=== PATIENT | male | born 1940 | race Caucasian/White ===

== ENCOUNTER 2018-01-28 09:24 | Emergency (ER) | payer MEDICARE, MEDICAID ==
[~2018-01-28] VITALS: Ht 172.7 cm; Wt 72.0 kg
[~2018-01-28 09:24] MED LIST: CIPRO XR500 M1 OR; DARVOCET-N 100100 MG OR; LOPRESSOR50 MG PO; METOPROL TAR50 MG PO; NO MEDS; ROCEPHIN IV
[2018-01-28] MEDS ORDERED: METOPROL TAR25 MG PO (09:33)
[2018-01-28] MEDS ORDERED: BACITRACIN3.5 GM TOP (09:39)
[2018-01-28 10:00] VITALS: BP 151/77
== END 2018-01-28 10:00 | disposition home or self-care (01) ==
LOC: ED 09:24
DX: T23.261A Burn of second degree of back of right hand, initial encounter (principal); I10 Essential (primary) hypertension; J44.9 Chronic obstructive pulmonary disease, unspecified; F17.210 Nicotine dependence, cigarettes, uncomplicated; T31.0 Burns involving less than 10% of body surface; X10.2XXA Contact with fats and cooking oils, initial encounter; Z86.12 Personal history of poliomyelitis

== ENCOUNTER 2019-06-11 10:26 | Emergency (ER) | payer MEDICARE, MEDICAID ==
[~2019-06-11] VITALS: Ht 172.7 cm; Wt 75.0 kg
[~2019-06-11 10:26] MED LIST changes: +BACITRACIN3.5 GM TOP; +METOPROL TAR25 MG PO
[2019-06-11] MEDS ORDERED: LOPRESSOR 550 MG/TAB PO (11:03)
[2019-06-11] MEDS ORDERED: PREP H HC1 % EX (12:04)
[2019-06-11 12:08] VITALS: BP 153/88
[2019-06-13] MEDS ORDERED: VENTOLIN H108 MCG/AC (12:47)
== END 2019-06-11 12:17 | disposition home or self-care (01) ==
LOC: ED 10:26
DX: K62.2 Anal prolapse (principal); K59.00 Constipation, unspecified

== ENCOUNTER 2019-06-13 13:15 | Observation (INO) | payer MEDICARE, MEDICAID ==
[~2019-06-13] VITALS: Ht 170.2 cm; Wt 62.9 kg
[~2019-06-13 13:15] MED LIST changes: +LOPRESSOR 550 MG/TAB PO; +PREP H HC1 % EX; +VENTOLIN H108 MCG/AC
--- NOTE | 2019-06-13 13:28 | NUR ---
PT ARRIVED TO THE UNIT VIA WC WITH FAMILY. ASSISTED TO GET INTO BED AND ABLE TO CHANGE CLOTHES BY HIMSELF . FAMILY IN THE ROOM.
[2019-06-13 13:50] VITALS: BP 135/81
--- NOTE | 2019-06-13 14:00 | NUR ---
ASSESSMENT IS COMPLETED: IV SITE IS FREE FROM REDNESS OR EDEMA. HR IS REG,PULSES ARE STRONG X4, ABD IS SOFT WITH ACTIVE BS. BREATH SOUNDS ARE CLEAR, BILATERALLY. FAMILY WILL STAY IN THE ROOM TO ASSIST WITH PT. 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 CONTINUE TO OBSERVE AND MONITOR.
[2019-06-13 14:19] LABS: ALBUMIN 4.4 g/dL (3.2-5.0); ALKALINE PHOSPHATASE 85 u/l (38-126); BUN 17 mg/dL (8-23); BUN/CREATININE RATIO 21 (12-20 (CALC)); CARBON DIOXIDE 25 mmol/l (22-30); CHLORIDE 107 mmol/l (95-108); CREATININE 0.8 mg/dL (0.7-1.3); GFR > 60 ML/MIN (>=60 (CALC)); GFR FOR AFR.AMER. > 60 ML/MIN (>=60 (CALC)); SODIUM 140 mmol/l (137-146); TOTAL PROTEIN 7.7 g/dL (6.3-8.2)
[2019-06-13 14:33] LABS: ANION GAP 14 (6-22 (CALC)); BILIRUBIN, TOTAL 1.8 mg/dL (0.0-1.4); POTASSIUM 5.7 mmol/l (3.5-5.1); SGOT/AST 44 u/l (19-48)
[2019-06-13] MEDS ORDERED: LOPRESSOR50 M2 PO (14:34)
[2019-06-13 14:35] LABS: HEMATOCRIT 50.2 % (39.0-50.0); HEMOGLOBIN 16.3 g/dl (14.0-18.0); IMMATURE GRANULOCYTES 0.3 % (0.0-5.0); MEAN CELL VOLUME 91.3 fL CALC (80.0-100.0); MEAN CORPUSCULAR HGB 29.6 pG CALC (26.0-32.0); MEAN CORPUSCULAR HGB CONC 32.5 g/L CALC (32.0-36.0); NEUT# 3.97 thou/uL (1.82-7.42); RED BLOOD COUNT 5.5 mill/uL (4.70-6.10); RED CELL DISTRI WIDTH 14.1 % (11.5-15.5)
[2019-06-13] MEDS ORDERED: FOLIC ACI1 PO (14:35)
[2019-06-13] MEDS ORDERED: B-12100 MCG PO (14:39)
[2019-06-13 15:56] VITALS: BP 134/89
--- NOTE | 2019-06-13 17:00 | NUR ---
PT IS RELAXING IN BED FAMILY IN THE ROOM. IV SITE IS FREE FROM REDNESS OR EDEMA. CONTINUE TO OSBERVE AND MONITOR.
--- NOTE | 2019-06-13 18:23 | NUR ---
STARTED TP ON NULYTELY. WITH ROOM TEMPERATURE WATER. TOLERATING WELL.
[2019-06-13 20:00] VITALS: BP 142/90
--- NOTE | 2019-06-13 20:00 | NUR ---
PT AWAKE RESTING IN BED. PT HAVING FREQUENT LOSE BOWEL MOVEMENTS. PT IS DRINKING HIS NULYTELY WITHOUT ANY DIFFICLTY. PT IS ALERT AND ORIENTED. RESP EVEN AND UNLABORED. LUNGS CLEAR BILAT. ABD SOFT AND NONDISTENDED WITH BOWEL SOUNDS PRESENT. NO LOWER EXT EDEMA NOTED. PEDAL PULSES PALPATED BILAT. IV SITE PATENT IN RT A.C. NO REDNESS OR SWELLING AT SITE. IVF LR AT 125CC/HR. PT AND PTS FAMILY HAVE NO QUESTIONS REGARDING SURGERY TO BE PERFORMED IN THE A.M. PT INSTRUCTED HE WILL REMAIN NPO AFTER MIDNIGHT. DUE TO PT HAVING POLIO PT UNABLE TO SIGN CONSENT FORM SO PT HAS TO USE HIS NAME STAMPER TO AUTHORIZE PERMITTION FOR SURGERY. CONSENT STAMPED BY PT. PT OFFERS NO COMPLAITNS. FREQUENT ROUNDS MADE. CALL LORENZANA WITHIN REACH.
--- NOTE | 2019-06-13 22:14 | NUR ---
PT FREQUENTLY ASSISTED TO BSC. PT HAVING FREQUENT LIGHT BROWN LIQUID STOOLS. PT IS DRINKING HIS NULYTELY. OFFERS NO COMPLAINTS. FREQUENT ROUNDS MADE. CALL LORENZANA WITHIN REACH.
--- NOTE | 2019-06-13 23:40 | NUR ---
DUE TO PT HAVING CONTINIOUS LIQUID BOWEL MOVEMENTS PT REQUEST TO SIT ON BSC INSTEAD OF FREQUENTLY GETTING IN AND OUT OF BED. PT HAD FREQUENT LIQIOD YELLOW/CLEAR BOWEL MOVEMENTS. PT DID DRINK ALL HIS NULYTELY. AMADOR CARE GIVEN. ASSISTED BACK TO BED AND REPOSITIONED FOR COMFORT. RESP EVEN AND UNLABORED. IV SITE PATENT. OFFERS NO COMPLAINTS. PTS SISTER STAYING THE NIGHT AT BEDSIDE. FREQUENT ROUNDS MADE. CALL LORENZANA WITHIN REACH.
[2019-06-14] VITALS (10 sets, daily range): BP systolic 99–150; BP diastolic 58–98
--- NOTE | 2019-06-14 00:10 | NUR ---
PT AWARE TO REMAIN NPO. IV SITE PATENT. FREQUENT ROUNDS MADE. CALL LORENZANA WITHIN REACH.
--- NOTE | 2019-06-14 02:01 | NUR ---
PT ASSISTED BACK TO BED AFTER USING BSC. PT CONTINUES TO HAVE CLEAR LIQUID BOWEL MOVEMENTS. AMADOR CARE GIVEN. IV SITE PATENT. PT REMAINS NPO. FREQUENT ROUNDS MADE. CALL LORENZANA WITHIN REACH.
--- NOTE | 2019-06-14 04:16 | NUR ---
PT AWAKE RESTING IN BED. ASSESSMENT UNCHANGED. PT CONTINUES TO HAVE LIQUID YELLOW BOWEL MOVEMENTS BUT SMALLER AND LESS IN FREQUENCY. IV SITE PATENT. PT REMAINS NPO. PTS SISTER AT BEDSIDE AND ATTENTIVE AT PTS NEEDS. OFFERS NO COMPLAINTS. CALL LORENZANA WITHIN REACH.
--- NOTE | 2019-06-14 05:05 | NUR ---
PT AWAKE RESTING IN BED. PT GIVEN A HIBICLENS BATH BY [employer] FOR O.R TODAY. CALL LORENZANA WITHIN REACH.
[2019-06-14 05:11] LABS: ANION GAP 14 (6-22 (CALC)); BUN 13 mg/dL (8-23); BUN/CREATININE RATIO 17 (12-20 (CALC)); CARBON DIOXIDE 24 mmol/l (22-30); CHLORIDE 109 mmol/l (95-108); CREATININE 0.7 mg/dL (0.7-1.3); GFR > 60 ML/MIN (>=60 (CALC)); GFR FOR AFR.AMER. > 60 ML/MIN (>=60 (CALC)); SODIUM 143 mmol/l (137-146)
[2019-06-14 05:19] LABS: POTASSIUM 4.1 mmol/l (3.5-5.1)
--- NOTE | 2019-06-14 07:25 | NUR ---
REPORT RECEIVED FROM SANDY ORR;PT OOB RESTING ON BEDSIDE COMMODE WITH FAMILY AT BEDSIDE;INTRODUCED SELF TO PT AND POC DISCUSSED;RESPIRATIONS EVEN AND UNLABORED ON RA;PT EXPRESSES WISHES TO HAVE IV SITE CHANGED R/T DISCOMFORT, IV FLUIDS INFUSING WITH EASE;SANDY ORR TO CHANGE IV SITE PER PT REQUEST;PT DENIES ANY ADDITIONAL NEEDS AT THIS TIME AND IS ENCOURAGED TO CALL FOR ASSISTANCE IF NEEDED;FALL PRECAUTIONS IN PLACE WITH CALL LIGHT IN REACH;WILL CONTINUE TO MONITOR
--- NOTE | 2019-06-14 08:00 | NUR ---
IV SITE IN RT A.C REMOVED PER PTS REQUEST WITH CATHETER INTACT. NEW IV SITE OBTAINED ON FIRST ATTEMPT IN RT FOREARM WITH GOOD BLOOD RETURN. FLUSHED WITHOUT ANY DIFFICULTY. IVF LR AT 125CC/HR INFUSING NO REDNESS OR SWELLING AT SITE. OFFERS NO COMPLAINTS. CALL LORENZANA WITHIN REACH.
--- NOTE | 2019-06-14 09:05 | NUR ---
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 PROVIDED AND PT EDUCATED ON USE POST OP 10X PER HOUR, PT DEMONSTRATED UNDERSTANDING AT THIS TIME, GOAL 500;PT DENIES ANY ADDITIONAL NEEDS AND IS ENCOURAGED TO CALL FOR ASSISTANCE IF NEEDED;FALL PRECAUTIONS IN PLACE WITH CALL LIGHT IN REACH;WILL CONTINUE TO MONITOR
--- NOTE | 2019-06-14 10:25 | NUR ---
AT BEDSIDE DISCUSSING POC. CONSENT TO BE OBTAINED FOR A HEMORRHOIDECTOMY.PT VERBALIZES UNDERSTANDING.
--- NOTE | 2019-06-14 11:42 | NUR ---
ATTEMPTED TO OBTAIN CONSENT FOR HEMORRIODECTOMY BUT PATIENT SISTER WHO IS POA IS DRIVING BACK FROM [place] AND SHOULD ARRIVE SHORTLY. PT UNABLE TO SIGN FOR HIMSELF.
--- NOTE | 2019-06-14 11:45 | NUR ---
PT RESTING IN SEMI FOWLERS POSITION WITH FAMILY AT BEDSIDE;RESPIRATIONS REMAIN EVEN AND UNLABORED ON RA;PT DENIES ANY PAIN OR DISCOMFORTS;IV FLUIDS INFUSING TO RFA WITH EASE PER ORDER;PT AND FAMILY NOTIFIED OF ETA FOR OR AT APPROX 15 MINS AND VERBALIZE UNDERSTANDING;PT DENIES ANY ADDITIONAL NEEDS AT THIS TIME AND IS ENCOURAGED TO CALL FOR ASSISTANCE IF NEEDED;CALL LIGHT IN REACH;WILL CONTINUE TO MONITOR
--- NOTE | 2019-06-14 12:00 | NUR ---
PT TRANSPORTED TO OR IN STABLE CONDITION VIA STRETCHER ACCOMPANIED BY OR STAFF MEMBER.
--- NOTE | 2019-06-14 15:55 | NUR ---
PT RETURNED BACK TO MED/SURG ROOM 278 IN STABLE CONDITION VIA STRETCHER ACCOMPANIED BY X2 OR STAFF MEMBERS, FAMILY WAITING IN ROOM;BEDSIDE REPORT RECEIVED AT THIS TIME;PT TRANSFERRED TO HOSPITAL BED WITH 3 PERSON ASSIST AND TOLERATED WELL;PT A&O X3, LAUGHING AND JOKING WITH STAFF MEMBERS;PT POST OP HEMORROIDECTOMY;PT REPORTS MINIMAL PAIN AT THIS TIME, PAIN SCALE AND REPORTING EDUCATED;RESPIRATIONS REMAIN EVEN AND UNLABORED ON O2 @ 2L VIA NC;I.S. AT BEDSIDE AND REINFORCED USAGE;IV SITE TO RIGHT FOREARM INFUSING LR @ 75 ML/HR,SITE APPEARS HEALTHY;PT RE-POSITIONED IN BED AND RECTAL AREA OBSERVED, MINIMAL BLOOD TINGED DRAINAGE NOTED;SCD'S PLACED ON PATIENT;VS REMAIN STABLE AND WILL BE TAKEN Q15 MINS PER PROTOCAL;PT DENIES ANY ADDITIONAL NEEDS AND IS ENCOURAGED TO CALL FOR ASSISTANCE IF NEEDED;CALL LIGHT IN REACH;WILL CONTINUE TO MONITOR
--- NOTE | 2019-06-14 18:00 | NUR ---
PT RESTING IN SEMI FOWLERS POSITION WITH FAMILY AT BEDSIDE;RESPIRATIONS REMAIN EVEN AND UNLABORED ON O2 @ 2L VIA NC;PT REPORTS RECTAL PAIN TO BE 3/10 ON THE PAIN SCALE, PT TO BE MEDICATED WITH SCHEDULED TORADOL IVP;PT DENIES ANY ADDITIONAL NEEDS;CALL LIGHT IN REACH;WILL CONTINUE TO MONITOR
--- NOTE | 2019-06-14 18:55 | NUR ---
REPORT FROM LAURA CARRENO. PT SITTING UP IN BED. SEVERAL VISITORS IN ROOM AT THIS TIME. NO APPARENT DISTRESS NOTED. PT DENIES ANY PAIN OR DISCOMFORT. SMALL AMOUNT OF BLOOD NOTED TO NITIN ON BED. WILL CONTINUE TO MONITOR. DISCUSSED POC. PT VERBALIZED UNDERSTANDING. CALL LIGHT WITHIN REACH.
--- NOTE | 2019-06-14 20:10 | NUR ---
PT RESTING IN BED ON LEFT SIDE. SMALL AMOUNT OF BLOOD NOTED TO NITIN AND LINENS. PARTIAL BED BATH AND LINEN CHANGE PROVIDED. PT DENIES ANY PAIN OR DISCOMFORT. FAMILY MEMBER REMAINS IN ROOM. CALL LIGHT WITHIN REACH. WILL CONTINUE TO MONITOR.
--- NOTE | 2019-06-15 00:21 | NUR ---
PT MEDICATED WITH SCHEDULED TORADOL. PT DENIES ANY PAIN OR DISCOMFORT AT THIS TIME. NO DISTRESS NOTED. FAMILY REMAINS IN ROOM. CALL LIGHT WITHIN REACH. WILL CONTINUE TO MONITOR.
[2019-06-15 03:47] VITALS: BP 89/49
--- NOTE | 2019-06-15 03:47 | NUR ---
PT RESTING IN BED WITH EYES CLOSED. NO DISTRESS NOTED. NO BLOOD OR DRAINAGE NOTED FROM RECTUM. BP A LITTLE LOW. PT DENIES ANY PAIN OR DISCOMFORT. REPOSITIONED PT AND ELEVATED FOOT OF BED. WILL CONTINUE TO MONITOR.
[2019-06-15 04:23] VITALS: BP 93/68
--- NOTE | 2019-06-15 06:35 | NUR ---
CURRENT BP 95/52. PT REFUSED PAIN MEDICATION, FAMILY MEMBER IN ROOM CONCERNED ABOUT BP BEING LOW. EDUCATED PT AND FAMILY MEMBER ON MEDICATIONS AND PRN MEDICATIONS IF PT BEGINS TO HAVE PAIN. NO APPARENT DISTRESS NOTED. CALL LIGHT WITHIN REACH. WILL CONTINUE TO MONITOR.
--- NOTE | 2019-06-15 07:00 | NUR ---
REPORT RECEIVED FROM WAI LAIRD;PT RESTING IN SEMI FOWLERS POSITION WITH FAMILY AT BEDSIDE;INTRODUCED SELF TO PT AND POC DISCUSSED;RESPIRATIONS EVEN AND UNLABORED ON O2 @ 2L VIA NC;PT DENIES ANY CURRENT PAIN OR DISCOMFORTS;IV FLUIDS INFUSING TO RIGHT FOREARM WITH EASE;PT DENIES ANY ADDITIONAL NEEDS AND IS ENCOURAGED TO CALL FOR ASSISTANCE IF NEEDED;CALL LIGHT IN REACH;WILL CONTINUE TO MONITOR
[2019-06-15 08:55] VITALS: BP 103/73
--- NOTE | 2019-06-15 08:55 | NUR ---
PT RESTING IN SEMI FOWLERS POSITION WITH FAMILY AT BEDSIDE,A&O X3 WITH GARBLED SPEECH.PT FAMILY REPORTS THIS IS NORMAL FOR PATIENT;VS OBTAINED AND ASSESSMENT COMPLETED, CURRENT BP 103/73 HR 90. MD TO BE NOTIFIED OF HYPOTENSION;PT REPORTS MINIMAL PAIN AT THIS TIME, PAIN SCALE AND REPORTING EDUCATED;PT POST OP DAY #1 HEMORROIDECTOMY;RESPIRATIONS EVEN AND UNLABORED ON O2 @ 2L VIA NC,CLEAR LUNG SOUNDS;RE-ENCOURAGED PT TO USE I.S. 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
--- NOTE | 2019-06-15 09:45 | NUR ---
NOTIFIED OF HYPOTENSION, ORDER TO HOLD LOPRESSOR PO THIS MORNING OBTAINED;WILL CONTINUE TO MONITOR
--- NOTE | 2019-06-15 10:00 | NUR ---
PT ASSISTED TO BEDSIDE COMMODE FOR SITZ BATH. PT TOLERATED WELL.
--- NOTE | 2019-06-15 10:15 | NUR ---
AT BEDSIDE DISCUSSING POC WITH PT AND FAMILY.
[2019-06-15 11:59] VITALS: BP 122/71
--- NOTE | 2019-06-15 12:00 | NUR ---
PT RESTING IN SEMI FOWLERS POSITION WITH MULTIPLE FAMILY MEMBERS AT BEDSIDE;RESPIRATIONS EVEN AND UNLABORED ON RA;PT REPORTS RECTAL PAIN RATING 2/10 ON THE PAIN SCALE AND IS TO BE MEDICATED WITH SCHEDULED TORADOL IVP; IV SITE PATENT INFUSING FLUIDS PER ORDER;VS STABLE, BP 122/71 HR 80;PT ASSISTED WITH MEAL TRAY SET UP;PT DENIES ANY ADDITIONAL NEEDS AT THIS TIME AND IS ENCOURAGED TO CALL FOR ASSISTANCE IF NEEDED;FALL PRECAUTIONS IN PLACE WITH CALL LIGHT IN REACH;WILL CONTINUE TO MONITOR
--- NOTE | 2019-06-15 15:10 | NUR ---
PT AMBULATED TO BEDSIDE COMMODE WITH A WEAK GAIT WITH 1 PERSON ASSIST.VOIDED CLEAR/YELLOW URINE INTO COMMODE, AMADOR CARE PROVIDED;SMALL AMOUNT OF BLOOD NOTED;PT RE-POSITIONED BACK INTO BED;RESPIRATIONS EVEN AND UNLABORED ON RA;PT DENIES ANY CURRENT PAIN OR DISCOMFORTS;IV FLUIDS INFUSING TO RIGHT FOREARM WITH EASE;PT DENIES ANY ADDITIONAL NEEDS AND IS ENCOURAGED TO CALL FOR ASSISTANCE IF NEEDED;CALL LIGHT IN REACH;WILL CONTINUE TO MONITOR
[2019-06-15 15:37] VITALS: BP 101/67
--- NOTE | 2019-06-15 18:55 | NUR ---
REPORT FROM LAURA CARRENO. PT RESTING IN BED WITH FAMILY AT BEDSIDE. ALERT AND ORIENTED. PT DENIES ANY PAIN OR DISCOMFORT. NO CURRENT BLEEDING FROM RECTUM NOTED. DISCUSSED POC. PT VERBALIZED UNDERSTANDING. CALL LIGHT WITHIN REACH. WILL CONTINUE TO MONITOR.
[2019-06-15 19:23] VITALS: BP 113/70
--- NOTE | 2019-06-15 23:55 | NUR ---
PT RESTING IN BED WITH EYES CLOSED. PT EASILY AROUSED TO SPEECH. PT DENIES ANY PAIN OR DISCOMFORT. NO APPARENT DISTRESS OR BLEEDING NOTED. CALL LIGHT WITHIN REACH. WILL CONTINUE TO MONITOR.
[2019-06-16 00:24] VITALS: BP 119/75
[2019-06-16 04:08] VITALS: BP 107/67
--- NOTE | 2019-06-16 05:54 | NUR ---
EMPTIED 200ML CLEAR YELLOW URINE FROM URINAL. PT DENIES ANY PAIN OR DISCOMFORT. MEDICATED ORDERED. CALL LIGHT WITHIN REACH. WILL CONTINUE TO MONITOR.
[2019-06-16 06:00] LABS: ANION GAP 8 (6-22 (CALC)); BUN 8 mg/dL (8-23); BUN/CREATININE RATIO 12 (12-20 (CALC)); CARBON DIOXIDE 28 mmol/l (22-30); CHLORIDE 108 mmol/l (95-108); CREATININE 0.7 mg/dL (0.7-1.3); GFR > 60 ML/MIN (>=60 (CALC)); GFR FOR AFR.AMER. > 60 ML/MIN (>=60 (CALC)); POTASSIUM 3.7 mmol/l (3.5-5.1); SODIUM 140 mmol/l (137-146)
[2019-06-16 06:48] LABS: MEAN CELL VOLUME 92.8 fL CALC (80.0-100.0); MEAN CORPUSCULAR HGB 29.5 pG CALC (26.0-32.0); MEAN CORPUSCULAR HGB CONC 31.8 g/L CALC (32.0-36.0); RED BLOOD COUNT 4.47 mill/uL (4.70-6.10); RED CELL DISTRI WIDTH 14.3 % (11.5-15.5)
[2019-06-16 06:50] LABS: HEMATOCRIT 41.5 % (39.0-50.0); HEMOGLOBIN 13.2 g/dl (14.0-18.0)
--- NOTE | 2019-06-16 07:00 | NUR ---
SHIFT CHANGE REPORT, PT AWAKE AND ALERT, DENIES PAIN/DISCOMFORT, IVF INFUSING, SCD IN PLACE, CALL LORENZANA IN REACH.
[2019-06-16 08:52] VITALS: BP 144/88
--- NOTE | 2019-06-16 11:01 | NUR ---
TONYE GIVERS IN ROOM AT THIS TIME, ASSISTED PT TO BSC, AMADOR CARE DONE BY FIRER LOCOMOTIVE CRANE AND SITZ BATH GIVEN BY RN, WILL CONTINUE TO MONITOR.
--- NOTE | 2019-06-16 13:47 | NUR ---
DR GAUTHIER ROUNDED, SAID PT MAY GO HOME FROM HIS STANDPOINT, DR MOYER NOTIFIED.
--- NOTE | 2019-06-16 13:59 | NUR ---
DR MOYER ROUNDED, DISCUSSED D/C PLANS, PT STATED UNDERSTANDING AND GREATFUL TO BE GOING HOME, FAMILY IN ROOM AND ALSO INFORMED OF PLANS.
[2019-06-16 14:45] VITALS: BP 111/67
--- NOTE | 2019-06-16 16:00 | NUR ---
ANXIOUSLY AWAITING D/C ORDERS HE IS ANXIOUS TO GO HOME, NO COMPLAINS AT THIS TIME, FAMILY AT BEDSIDE.
--- NOTE | 2019-06-16 17:47 | NUR ---
Discharge instructions given. Patient verbalizes understanding of same. Discharged in stable condition via Wheelchair to Home with family. All belongings sent with pt. HOME HEALTH TO FOLLOW
== END 2019-06-16 17:40 ==
LOC: MS2 13:15
PROVIDERS: ADMIT Surgery; ATTEND Internal Medicine
PROC: 06BY3ZC Excision of Hemorrhoidal Plexus, Percutaneous Approach (ICD-10-PCS; principal; 2019-06-14)
DX: K64.3 Fourth degree hemorrhoids (principal); I10 Essential (primary) hypertension; R00.8 Other abnormalities of heart beat; Z86.12 Personal history of poliomyelitis
CPT/HCPCS: C9290; J0131

== ENCOUNTER 2019-11-17 | Emergency (ER) | payer MEDICARE, MEDICAID ==
[~2019-11-17] MED LIST changes: +B-12100 MCG PO; +FOLIC ACI1 PO; +LOPRESSOR50 M2 PO
[2019-11-17 20:13] LABS: HEMATOCRIT 47.4 % (39.0-50.0); HEMOGLOBIN 15.2 g/dl (14.0-18.0); IMMATURE GRANULOCYTES 0.4 % (0.0-5.0); MEAN CELL VOLUME 92.9 fL CALC (80.0-100.0); MEAN CORPUSCULAR HGB 29.8 pG CALC (26.0-32.0); MEAN CORPUSCULAR HGB CONC 32.1 g/L CALC (32.0-36.0); NEUT# 7.35 thou/uL (1.82-7.42); RED BLOOD COUNT 5.1 mill/uL (4.70-6.10); RED CELL DISTRI WIDTH 13.9 % (11.5-15.5)
[2019-11-17 20:18] LABS: ALBUMIN 3.9 g/dL (3.2-5.0); ALKALINE PHOSPHATASE 87 u/l (38-126); AMYLASE 85 u/l (30-110); ANION GAP 10 (6-22 (CALC)); BUN 13 mg/dL (8-23); BUN/CREATININE RATIO 15 (12-20 (CALC)); CARBON DIOXIDE 29 mmol/l (22-30); CHLORIDE 104 mmol/l (95-108); CREATININE 0.8 mg/dL (0.7-1.3); GFR > 60 ML/MIN (>=60 (CALC)); GFR FOR AFR.AMER. > 60 ML/MIN (>=60 (CALC)); LIPASE 181 u/l (23-300); POTASSIUM 4.3 mmol/l (3.5-5.1); SGOT/AST 34 u/l (19-48); SODIUM 138 mmol/l (137-146); TOTAL PROTEIN 7.4 g/dL (6.3-8.2)
[2019-11-17 20:19] LABS: BILIRUBIN, TOTAL 0.8 mg/dL (0.0-1.4)
[2019-11-17 21:48] LABS: URINE BILIRUBIN - DIPSTICK NEGATIVE (NEGATIVE); URINE BLOOD DIPSTICK NEGATIVE (NEGATIVE); URINE COLOR YELLOW; URINE GLUCOSE - DIPSTICK NEGATIVE (NEGATIVE); URINE KETONE NEGATIVE (NEGATIVE); URINE LEUK ESTERASE NEGATIVE (NEGATIVE); URINE NITRITE - DIPSTICK NEGATIVE (Negative); URINE PH 7.5 (4.5-8.0); URINE PROTEIN - DIPSTICK NEGATIVE (NEG-TRACE); URINE SPECIFIC GRAVITY 1.015
== END 2019-11-18 00:30 | disposition home or self-care (01) ==
PROVIDERS: Emergency Medicine
DX: K21.9 Gastro-esophageal reflux disease without esophagitis (principal); I10 Essential (primary) hypertension; J44.9 Chronic obstructive pulmonary disease, unspecified

== ENCOUNTER 2022-07-07 12:05 | Emergency (ER) | payer MEDICARE, MEDICAID ==
[~2022-07-07] VITALS: Ht 170.2 cm; Wt 65.9 kg
[~2022-07-07 12:05] MED LIST changes: -B-12100 MCG PO; +B-121000 MC1 PO; -FOLIC ACI1 PO; +FOLIC ACID1 MG PO
[2022-07-07 12:14] VITALS: BP 122/94
[2022-07-07 12:33] LABS: HEMATOCRIT 49.6 % (39.0-50.0); HEMOGLOBIN 16.5 g/dl (14.0-18.0); IMMATURE GRANULOCYTES 0.1 % (0.0-5.0); MEAN CELL VOLUME 92.7 fL CALC (80.0-100.0); MEAN CORPUSCULAR HGB 30.8 pG CALC (26.0-32.0); MEAN CORPUSCULAR HGB CONC 33.3 g/dL CAL (32.0-36.0); NEUT# 4.35 thou/uL (1.82-7.42); RED BLOOD COUNT 5.35 mill/uL (4.70-6.10)
[2022-07-07 12:44] LABS: ALBUMIN 4.1 g/dL (3.2-5.0); ALKALINE PHOSPHATASE 77 u/l (38-126); ANION GAP 12 (6-22 (CALC)); BILIRUBIN, TOTAL 1.2 mg/dL (0.0-1.4); BUN 16 mg/dL (8-23); BUN/CREATININE RATIO 17 (12-20 (CALC)); CARBON DIOXIDE 27 mmol/l (22-30); CHLORIDE 102 mmol/l (95-108); CREATININE 0.9 mg/dL (0.7-1.3); GFR FOR AFR.AMER. > 60 ML/MIN (>=60 (CALC)); GFR OTHER RACES > 60 ML/MIN (>=60 (CALC)); POTASSIUM 3.8 mmol/l (3.5-5.1); SGOT/AST 30 u/l (19-48); SODIUM 137 mmol/l (137-146); TOTAL PROTEIN 7.3 g/dL (6.3-8.2)
[2022-07-07] MEDS ORDERED: ANUCORT-HC25 MG RE (12:59)
[2022-07-07 13:01] VITALS: BP 129/101
[2022-07-07 13:08] VITALS: BP 129/101
== END 2022-07-07 13:47 | disposition home or self-care (01) ==
LOC: ED 12:05
PROVIDERS: Family Medicine
DX: K64.8 Other hemorrhoids (principal); I10 Essential (primary) hypertension; J44.9 Chronic obstructive pulmonary disease, unspecified; Z86.12 Personal history of poliomyelitis

== ENCOUNTER 2022-07-18 13:37 | Observation (INO) | payer MEDICARE, MEDICAID ==
[~2022-07-18] VITALS: Ht 170.2 cm; Wt 73.3 kg
[2022-07-18] VITALS (20 sets, daily range): BP systolic 106–162; BP diastolic 64–111
[~2022-07-18 13:37] MED LIST changes: +ANUCORT-HC25 MG RE
[2022-07-18 14:21] LABS: HEMATOCRIT 49.3 % (39.0-50.0); HEMOGLOBIN 16.2 g/dl (14.0-18.0); IMMATURE GRANULOCYTES 0.1 % (0.0-5.0); MEAN CELL VOLUME 94.3 fL CALC (80.0-100.0); MEAN CORPUSCULAR HGB CONC 32.9 g/dL CAL (32.0-36.0); NEUT# 3.52 thou/uL (1.82-7.42); RED BLOOD COUNT 5.23 mill/uL (4.70-6.10); RED CELL DISTRI WIDTH 13.1 % (11.5-15.5)
[2022-07-18 14:25] LABS: ALBUMIN 4.1 g/dL (3.2-5.0); ALKALINE PHOSPHATASE 67 u/l (38-126); BILIRUBIN, TOTAL 0.8 mg/dL (0.0-1.4); BUN 14 mg/dL (8-23); BUN/CREATININE RATIO 16 (12-20 (CALC)); CHLORIDE 106 mmol/l (95-108); CREATININE 0.9 mg/dL (0.7-1.3); GFR FOR AFR.AMER. > 60 ML/MIN (>=60 (CALC)); GFR OTHER RACES > 60 ML/MIN (>=60 (CALC)); LIPASE 217 u/l (23-300); POTASSIUM 3.7 mmol/l (3.5-5.1); SGOT/AST 30 u/l (19-48); SODIUM 139 mmol/l (137-146); TOTAL PROTEIN 6.7 g/dL (6.3-8.2)
[2022-07-18 14:27] LABS: ANION GAP 18 (6-22 (CALC)); CARBON DIOXIDE 19 mmol/l (22-30)
[2022-07-18 16:29] LABS: URINE BILIRUBIN - DIPSTICK NEGATIVE (NEGATIVE); URINE BLOOD DIPSTICK NEGATIVE (NEGATIVE); URINE COLOR YELLOW; URINE GLUCOSE - DIPSTICK NEGATIVE (NEGATIVE); URINE KETONE NEGATIVE (NEGATIVE); URINE LEUK ESTERASE NEGATIVE (NEGATIVE); URINE PH 6.5 (4.5-8.0); URINE PROTEIN - DIPSTICK NEGATIVE (NEG-TRACE); URINE SPECIFIC GRAVITY 1.015
[2022-07-18 16:30] LABS: URINE NITRITE - DIPSTICK NEGATIVE (Negative)
--- NOTE | 2022-07-18 16:56 | NUR ---
PATIENT STATES PAIN RELEIF AND HERNIA WAS REDUCED BY MD. PATIENT SUPINE IN BED IN NO DISTRESS.
--- NOTE | 2022-07-18 17:07 | NUR ---
PATIENT AND FAMILY UPDATED ON PENDING RESULTS PATIENT IN NO APPARENT DISTRESS SKIN PINK WARM AND DRY
--- NOTE | 2022-07-18 19:31 | NUR ---
PT ADMITTED TO RM 276, REPORT CALLED TO RN
[2022-07-19] VITALS (10 sets, daily range): BP systolic 100–134; BP diastolic 59–92
--- NOTE | 2022-07-19 05:58 | NUR ---
20:30 Received this 82 year old make from ED via stretcher to room 276 for right lower quadrant pain. 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 patient is w/c boud, requires maximum assistance with ADL'S. Patient oriented to room and call systems. Fall safety in place. poc discussed with patient and family verbalized understanding.
--- NOTE | 2022-07-19 07:54 | NUR ---
RECIEVED REPORT. PT RESTING IN SEMI FOWLERS POSITION, A/OX3. RESPIRATIONS EVEN AND UNLABORED ON ROOM AIR. LUNG SOUNDS CLEAR. HEART RHYTHM NORMAL WITH TELE IN PLACE. BOWEL SOUNDS ACTIVE, MOD LIQUID STOOL THIS AM.#20G RFA INFUSING WITH IVF PER ORDER. REDNESS NOTED TO BUTTOCKS, SKIN REMAINS INTACT. HX OF POLIO, LEFT SIDE CONTRACTED AND SPEECH GARBLED. PT IS WHEELCHAIR BOUND. PT INFORMED OF INGUINAL HERNIA REPAIR, PT VERBALIZED UNDERSTANDING. PT DENIES OF ANY NEEDS AT THIS TIME. ALL SAFTETY PRECAUTIONS ARE IN PLACE WITH CALL LIGHT IN REACH
--- NOTE | 2022-07-19 08:35 | NUR ---
OBTAINED CONSENT FROM PT AT THIS TIME. PT UNABLE TO SIGN. SANDY VAUGHN TO WITNESS. PT REQUEST FOR SISTER TO BE INFORMED. SISTER NAM CONTACTED, VERBALIZED UNDERSTANDING.
--- NOTE | 2022-07-19 09:20 | NUR ---
PT TRANSPORTED TO OR VIA STRETCHER ACCOMAPINED BY SANDY ZACARIAS
[2022-07-19] MEDS ORDERED: PERCOCET1 TA4 PO (10:46)
--- NOTE | 2022-07-19 11:26 | NUR ---
PT ARRIVED TO [facility] ROOM 276 VIA STRETCHER. PT REMAINS A/OX3 BUT DROWSY. RESPIRATIONS EVEN AND UNLABORED ON ROOM AIR. TELE MONITORING IN PLACE. #20G RFA PATENT. PT INFORMED OF DC LATER IN AFTERNOON, VERBALIZED UNDERSTANDING. ALL SAFTEY PRECAUTIONS ARE IN PLACE WITH CALL LIGHT IN REACH
--- NOTE | 2022-07-19 13:29 | NUR ---
O2 REMOVED AT THIS TIME, O2 SAT 92%. PT EDUCATED IN BREATHING TECHNIQUES DUE TO PT BEING A MOUTH BREATHER. PT VERBALIZED UNDERSTANDING.
--- NOTE | 2022-07-19 14:36 | NUR ---
PT AND FAMILY EDUCATED ON DC INSTRUCTIONS. VERBLAIZED UNDERSTANDING. IV RMEOVED WITH CATH INTACT. TELE REMOVED, ER INFORMED.
--- NOTE | 2022-07-19 15:03 | NUR ---
Discharge instructions given. Patient verbalizes understanding of same. Discharged in stable condition via Wheelchair to Home with staff. All belongings sent with pt.
== END 2022-07-19 14:55 | disposition home or self-care (01) ==
LOC: ED 13:37 → ED-I 17:30 → ED 17:47 → MS2 17:48
PROVIDERS: Family Medicine; ADMIT Surgery; ATTEND Surgery
PROC: 0YU50JZ Supplement Right Inguinal Region with Synthetic Substitute, Open Approach (ICD-10-PCS; principal; 2022-07-19)
DX: K40.30 Unilateral inguinal hernia, with obstruction, without gangrene, not specified as recurrent (principal); I10 Essential (primary) hypertension; J44.9 Chronic obstructive pulmonary disease, unspecified; Z86.12 Personal history of poliomyelitis
CPT/HCPCS: C9290; J1650; Q9967; S0164

== ENCOUNTER 2024-06-06 11:10 | Inpatient (IN) | payer MEDICARE, MEDICAID ==
[~2024-06-06] VITALS: Ht 172.7 cm; Wt 54.9 kg
[2024-06-06] VITALS (24 sets, daily range): BP systolic 95–116; BP diastolic 54–92
[~2024-06-06 11:10] MED LIST changes: +ALBUTERO2 XX; +ALBUTEROL0.63 MG/3; +APIXABAN BASE 2.5 MG/TAB TAB PO SCH; +HYOSCYAMINE0.125 MG PO; +PERCOCET1 TA4 PO; +TRAMADOL HYDROC50 M1 PO; +ZOFRAN4 MG/TAB PO
[2024-06-06] MEDS ORDERED: SODIUM CHLORIDE 0.9% 500 ML IV ONE (11:35)
[2024-06-06] MEDS ORDERED: DILTIAZEM HCL 25 MG/5 ML SDV IV ONE (11:35)
[2024-06-06] MEDS ORDERED: ONDANSETRON HCl 4 MG/2 ML SDV IV ONE (11:35)
[2024-06-06] MEDS ORDERED: DILTIAZEM HCL 125 MG in SODIUM CHLORIDE 0.9% 100 ML IV ONE (11:35)
[2024-06-06] MEDS ORDERED: MORPHINE SULFATE 4 MG/ML VIAL IV ONE ×2 (11:35→13:45)
[2024-06-06 11:49] LABS: BASO% 0.3 % (0-3); EOS% 0.6 % (0-8); HEMATOCRIT 44.9 % (39.0-50.0); HEMOGLOBIN 14.6 g/dl (14.0-18.0); IMMATURE GRANULOCYTES 0.6 % (0.0-5.0); LYMPH% 14.6 % (15-41); MEAN CELL VOLUME 95.1 fL CALC (80.0-100.0); MEAN CORPUSCULAR HGB 30.9 pG CALC (26.0-32.0); MEAN CORPUSCULAR HGB CONC 32.5 g/dL CAL (32.0-36.0); MONO% 10.7 % (2-13); NEUT# 5.06 thou/uL (1.82-7.42); NEUT% 73.2 % (42-76); RED BLOOD COUNT 4.72 mill/uL (4.70-6.10)
[2024-06-06 12:10] LABS: ALBUMIN 3.3 g/dL (3.2-5.0); CARBON DIOXIDE 28 mmol/l (22-30); CHLORIDE 107 mmol/l (95-108); CREATININE 0.7 mg/dL (0.7-1.3); ESTIMATED GFR 91 ML/MIN (>=90 (CALC)); SGOT/AST 35 u/l (19-48); SODIUM 140 mmol/l (137-146); TOTAL PROTEIN 6.2 g/dL (6.3-8.2)
[2024-06-06 12:12] LABS: ANION GAP 8 (6-22 (CALC)); BILIRUBIN, TOTAL 2.9 mg/dL (0.2-1.3); BUN 34 mg/dL (8-23); BUN/CREATININE RATIO 49 (12-20 (CALC)); POTASSIUM 3.2 mmol/l (3.5-5.1)
[2024-06-06 12:13] LABS: ALKALINE PHOSPHATASE 215 u/l (38-126)
[2024-06-06 12:40] LABS: TSH, 3RD GENERATION 1.63 uIU/mL (0.47 - 4.68)
[2024-06-06] MEDS ORDERED: ENOXAPARIN SODIUM 60 MG/0.6 ML SYR SC ONE (13:40)
[2024-06-06] MEDS ORDERED: MAGNESIUM HYDROXIDE 30 ML UDC PO PRN (15:00)
[2024-06-06] MEDS ORDERED: Zaleplon 5 MG/CAP PO PRN (15:00)
[2024-06-06] MEDS ORDERED: ACETAMINOPHEN 325 MG/TAB PO PRN (15:00)
[2024-06-06] MEDS ORDERED: METOPROLOL TARTRATE 25 MG/TAB PO SCH (16:39)
[2024-06-06] MEDS ORDERED: HYDROcodone 5 MG/Acetaminophen 325 MG/COMBO PO PRN (16:40)
[2024-06-07] VITALS (22 sets, daily range): BP systolic 97–134; BP diastolic 64–95
[2024-06-07 05:52] LABS: HEMOGLOBIN 13.7 g/dl (14.0-18.0); MEAN CELL VOLUME 95.7 fL CALC (80.0-100.0); MEAN CORPUSCULAR HGB 31.2 pG CALC (26.0-32.0); MEAN CORPUSCULAR HGB CONC 32.6 g/dL CAL (32.0-36.0); RED BLOOD COUNT 4.39 mill/uL (4.70-6.10)
[2024-06-07 05:57] LABS: ALBUMIN 2.9 g/dL (3.2-5.0); BILIRUBIN, TOTAL 2.9 mg/dL (0.2-1.3); CREATININE 0.6 mg/dL (0.7-1.3); MAGNESIUM 2.2 mg/dL (1.6-2.3); TOTAL PROTEIN 5.8 g/dL (6.3-8.2)
[2024-06-07 05:59] LABS: POTASSIUM 3.9 mmol/l (3.5-5.1)
[2024-06-07] MEDS ORDERED: APIXABAN BASE 2.5 MG/TAB TAB PO SCH ×2 (09:00→09:30)
[2024-06-07] MEDS ORDERED: METOPROLOL TARTRATE 50 MG/TAB PO SCH (09:30)
[2024-06-07] MEDS ORDERED: NYSTATIN 1500 MU/BTL TOP SCH (14:00)
[2024-06-08] VITALS (26 sets, daily range): BP systolic 91–123; BP diastolic 60–84
[2024-06-08 06:04] LABS: HEMOGLOBIN 14.4 g/dl (14.0-18.0); MEAN CELL VOLUME 97.6 fL CALC (80.0-100.0); MEAN CORPUSCULAR HGB 31.2 pG CALC (26.0-32.0); RED BLOOD COUNT 4.61 mill/uL (4.70-6.10)
[2024-06-08 06:26] LABS: ALBUMIN 3.2 g/dL (3.2-5.0); BILIRUBIN, TOTAL 2.9 mg/dL (0.2-1.3); CREATININE 0.6 mg/dL (0.7-1.3); POTASSIUM 4.1 mmol/l (3.5-5.1)
[2024-06-09] VITALS (17 sets, daily range): BP systolic 82–115; BP diastolic 57–84
[2024-06-09] MEDS ORDERED: SODIUM CHLORIDE 0.9% 1,000 ML IV SCH (05:15)
[2024-06-09 05:45] LABS: BASO% 0.3 % (0-3); EOS% 0.3 % (0-8); HEMATOCRIT 40.9 % (39.0-50.0); HEMOGLOBIN 13.6 g/dl (14.0-18.0); IMMATURE GRANULOCYTES 0.8 % (0.0-5.0); LYMPH% 7.4 % (15-41); MEAN CELL VOLUME 95.6 fL CALC (80.0-100.0); MEAN CORPUSCULAR HGB 31.8 pG CALC (26.0-32.0); MEAN CORPUSCULAR HGB CONC 33.3 g/dL CAL (32.0-36.0); MONO% 8.9 % (2-13); NEUT# 9.84 thou/uL (1.82-7.42); NEUT% 82.3 % (42-76); RED BLOOD COUNT 4.28 mill/uL (4.70-6.10)
[2024-06-09] MEDS ORDERED: LOPRESSOR 550 MG/TAB PO (06:03)
[2024-06-09] MEDS ORDERED: ELIQUIS2.5 MG PO (06:03)
[2024-06-09 06:20] LABS: BILIRUBIN, TOTAL 2.8 mg/dL (0.2-1.3); CREATININE 0.7 mg/dL (0.7-1.3); POTASSIUM 3.5 mmol/l (3.5-5.1); TOTAL PROTEIN 5.2 g/dL (6.3-8.2)
[2024-06-09 06:23] LABS: ALBUMIN 2.5 g/dL (3.2-5.0)
[2024-06-09] MEDS ORDERED: SODIUM CHLORIDE 0.9% 500 ML IV SCH (09:30)
[2024-06-09] MEDS ORDERED: MIDODRINE HCL 5 MG TAB PO SCH (09:30)
[2024-06-09] MEDS ORDERED: LORTAB5 PO (11:09)
== END 2024-06-09 11:22 | DRG 310 ==
LOC: ED 11:10 → ED-I 11:53 → ED 11:53 → ED-I 12:50 → ED 13:19 → ICU 13:20
PROVIDERS: Family Medicine; Student in an Organized Health Care Education/Training Program; ADMIT Internal Medicine; ATTEND Internal Medicine
DX: I48.0 Paroxysmal atrial fibrillation (principal); E87.6 Hypokalemia; I10 Essential (primary) hypertension; J44.9 Chronic obstructive pulmonary disease, unspecified; R29.810 Facial weakness; M62.462 Contracture of muscle, left lower leg; M62.422 Contracture of muscle, left upper arm; M62.50 Muscle wasting and atrophy, not elsewhere classified, unspecified site; B91 Sequelae of poliomyelitis; I08.1 Rheumatic disorders of both mitral and tricuspid valves; S32.592D Other specified fracture of left pubis, subsequent encounter for fracture with routine healing; S32.512D Fracture of superior rim of left pubis, subsequent encounter for fracture with routine healing; R00.8 Other abnormalities of heart beat; M25.562 Pain in left knee; W19.XXXD Unspecified fall, subsequent encounter
CPT/HCPCS: J1650

== ENCOUNTER 2024-07-13 14:57 | Emergency (ER) | payer MEDICARE, MEDICAID ==
[~2024-07-13] VITALS: Ht 172.7 cm; Wt 58.0 kg
[~2024-07-13 14:57] MED LIST changes: -APIXABAN BASE 2.5 MG/TAB TAB PO SCH; +ELIQUIS2.5 MG PO; +LORTAB5 PO
[2024-07-13 15:28] LABS: BASO% 0.2 % (0-3); EOS% 1.8 % (0-8); HEMATOCRIT 43.9 % (39.0-50.0); HEMOGLOBIN 14.4 g/dl (14.0-18.0); IMMATURE GRANULOCYTES 0.5 % (0.0-5.0); LYMPH% 8.6 % (15-41); MEAN CELL VOLUME 96.5 fL CALC (80.0-100.0); MEAN CORPUSCULAR HGB 31.6 pG CALC (26.0-32.0); MEAN CORPUSCULAR HGB CONC 32.8 g/dL CAL (32.0-36.0); MONO% 10.5 % (2-13); NEUT# 6.67 thou/uL (1.82-7.42); NEUT% 78.4 % (42-76); RED BLOOD COUNT 4.55 mill/uL (4.70-6.10); RED CELL DISTRI WIDTH 13.8 % (11.5-15.5)
[2024-07-13 15:43] LABS: BILIRUBIN, TOTAL 3.5 mg/dL (0.2-1.3); CREATININE 0.7 mg/dL (0.7-1.3); POTASSIUM 3.6 mmol/l (3.5-5.1); TOTAL PROTEIN 5.9 g/dL (6.3-8.2)
[2024-07-13 16:08] VITALS: BP 138/85
[2024-07-13 16:15] VITALS: BP 106/82
[2024-07-13 16:30] VITALS: BP 120/82
[2024-07-13] MEDS ORDERED: LORTAB5 PO (17:09)
[2024-07-13] MEDS ORDERED: MIDODRINE HYDR2.5 MG PO (17:10)
[2024-07-13 17:38] LABS: URINE BILIRUBIN - DIPSTICK Negative (NEGATIVE); URINE BLOOD DIPSTICK Trace-intact (NEGATIVE); URINE GLUCOSE - DIPSTICK Negative (NEGATIVE); URINE KETONE Negative (NEGATIVE); URINE LEUK ESTERASE Negative (NEGATIVE); URINE NITRITE - DIPSTICK Negative (Negative); URINE PROTEIN - DIPSTICK Negative (NEG-TRACE)
[2024-07-13 17:41] LABS: URINE COLOR Yellow
[2024-07-13 17:44] VITALS: BP 130/84
[2024-07-13 18:19] VITALS: BP 130/84
== END 2024-07-13 18:21 | disposition short-term general hospital (02) ==
LOC: ED 14:57
PROVIDERS: Family Medicine
DX: K80.21 Calculus of gallbladder without cholecystitis with obstruction (principal); I10 Essential (primary) hypertension; J44.9 Chronic obstructive pulmonary disease, unspecified; R53.1 Weakness; R29.810 Facial weakness; M21.952 Unspecified acquired deformity of left thigh; M21.951 Unspecified acquired deformity of right thigh; B91 Sequelae of poliomyelitis